=== PATIENT | male | born 1970 | race Two or more races ===

== ENCOUNTER 2018-03-30 22:50 | Emergency (ER) | payer MEDICAID ==
[~2018-03-30] VITALS: Ht 175.3 cm; Wt 80.0 kg
[2018-03-30 23:03] VITALS: BP 126/92
== END 2018-03-31 02:11 | disposition left against medical advice (07) ==
LOC: ER 22:50
DX: R53.1 Weakness (principal); R51 Headache; Z53.21 Procedure and treatment not carried out due to patient leaving prior to being seen by health care provider

== ENCOUNTER 2018-08-18 18:06 | Emergency (ER) | payer MEDICAID ==
[~2018-08-18] VITALS: Ht 172.7 cm; Wt 88.0 kg
[2018-08-18 19:05] LABS: BASOPHILS # (AUTO) 0.1 X10'3 (0-0.2); BASOPHILS % (AUTO) 0.9 % (0-1); EOSINOPHILS # (AUTO) 0.9 X10'3 (0-0.9); EOSINOPHILS % (AUTO) 9.4 % (0-6); HEMATOCRIT 41.7 % (42.0-52.0); HEMOGLOBIN 14.1 g/dl (14.0-17.9); LYMPHOCYTES # (AUTO) 2.9 X10'3 (1.1-4.8); LYMPHOCYTES % (AUTO) 29.5 % (21-51); MEAN CORPUSCULAR HEMOGLOBIN 31.4 PG (27.0-31.0); MEAN CORPUSCULAR HGB CONC 33.7 g/dL (33.0-36.5); MEAN CORPUSCULAR VOLUME 93.2 FL (78-98); MEAN PLATELET VOLUME 7.7 FL (7.4-10.4); MONOCYTES # (AUTO) 0.8 X10'3 (0-0.9); MONOCYTES % (AUTO) 8.7 % (2-12); NEUTROPHILS # (AUTO) 5.1 X10'3 (1.8-7.7); NEUTROPHILS % (AUTO) 51.5 % (42-75); PLATELET COUNT 265 X10'3 (140-440); RED BLOOD COUNT 4.47 X10'6 (4.70-6.10); RED CELL DISTRIBUTION WIDTH 13.7 % (11.5-14.5); WHITE BLOOD COUNT 9.8 X10'3 (4.5-11.0)
[2018-08-18 19:12] LABS: ALANINE AMINOTRANSFERASE 44 U/L (12-78); ALBUMIN 3.8 G/DL (3.4-5.0); ALBUMIN/GLOBULIN RATIO 1.4 (1.1-1.5); ALKALINE PHOSPHATASE 98 IU/L (46-116); ANION GAP 13 (8-16); ASPARTATE AMINO TRANSFERASE 12 U/L (10-37); BILIRUBIN,TOTAL 0.2 MG/DL (0.1-1.0); BLOOD UREA NITROGEN 16 MG/DL (7-18); CALCIUM 8.7 MG/DL (8.5-10.1); CHLORIDE 110 MMOL/L (99-107); CREATININE 1.14 MG/DL (0.60-1.10); GLUCOSE 113 MG/DL (70-104); POTASSIUM 3.6 MMOL/L (3.5-5.1); SODIUM 143 MMOL/L (135-145); TOTAL CARBON DIOXIDE 20.2 MMOL/L (24-32); TOTAL PROTEIN 6.5 G/DL (6.4-8.2); eGFR 68 ML/MIN
[2018-08-18] MEDS ORDERED: morphine 4 MG/ML inj SYRINge IV ONE (19:45)
[2018-08-18] MEDS ORDERED: normal saline 1000ML IV soln IVB ONE (19:45)
[2018-08-18 19:56] LABS: CLARITY,URINE SLIGHTLY CLOUDY (Clear); COLOR,URINE YELLOW (Yellow); GLUCOSE, URINE NEGATIVE (Neg); KETONES,URINE NEGATIVE (Neg); LEUKOCYTE ESTERASE ,URINE NEGATIVE (Neg); NITRITES, URINE NEGATIVE (Neg); OCCULT BLOOD,URINE TRACE-INTACT (Neg); PROTEIN,URINE NEGATIVE (Neg); UROBILINOGEN,URINE 0.2 E.U/dL (0.2-1.0)
[2018-08-18 20:06] LABS: UA COLLECTION TYPE CLN CATCH MIDSTREAM
[2018-08-18 20:11] LABS: AMORPHOUS PHOSPHATES 2+; BACTERIA,URINE NONE SEEN /HPF (Neg); SQUAMOUS EPITHELIAL CELL,UR FEW /LPF (FEW); WBC,URINE 0-4 /HPF (0-4)
[2018-08-18 22:13] LABS: LIPASE 178 U/L (73-393)
[2018-08-18] MEDS ORDERED: FLO0.4C PO (22:19)
[2018-08-18] MEDS ORDERED: LORA-983 PO (22:19)
[2018-08-18] MEDS ORDERED: ONDA4TAB6 PO (22:19)
[2018-08-18] MEDS ORDERED: HYDR-4383 PO (22:19)
[2018-08-18 22:40] VITALS: BP 130/89
== END 2018-08-18 22:42 | disposition home or self-care (01) ==
LOC: ER 18:07
DX: R10.11 Right upper quadrant pain (principal); R10.31 Right lower quadrant pain; R11.2 Nausea with vomiting, unspecified; E78.00 Pure hypercholesterolemia, unspecified; I10 Essential (primary) hypertension; F12.90 Cannabis use, unspecified, uncomplicated; Z90.49 Acquired absence of other specified parts of digestive tract; Z98.890 Other specified postprocedural states; Z88.7 Allergy status to serum and vaccine; Z79.899 Other long term (current) drug therapy
CPT/HCPCS: 36415; 71101; 76700; 80053; 81001; 83690; 85025; 96374; 99284; J2270; J7030

== ENCOUNTER 2019-02-01 14:19 | Inpatient (IN) | payer MEDICAID ==
[~2019-02-01] VITALS: Ht 175.3 cm; Wt 81.0 kg
[~2019-02-01 14:19] MED LIST: HYDR-4383 PO; LORA-983 PO; ONDA4TAB6 PO
[2019-02-01] MEDS ORDERED: normal saline 1000ML IV soln IVB ONE (14:25)
--- NOTE | 2019-02-01 14:48 | NUR ---
PT SITTING UP IN BED, NOT FOLLOWING COMMANDS, PULLING AT LINES. ATTEMPTED TO CALM AND ORIENT PT, PT STILL NOT FOLLOWING COMMANDS. NOTIFIED MD, RECIEVED ORDER FOR NON-HAVIORAL SOFT RESTRAINTS.
[2019-02-01 14:55] LABS: BASOPHILS # (AUTO) 0.1 X10'3 (0-0.2); BASOPHILS % (AUTO) 0.9 % (0-1); EOSINOPHILS # (AUTO) 0.6 X10'3 (0-0.9); EOSINOPHILS % (AUTO) 6.5 % (0-6); HEMATOCRIT 41.1 % (42.0-52.0); HEMOGLOBIN 14.1 g/dl (14.0-17.9); LYMPHOCYTES # (AUTO) 2.7 X10'3 (1.1-4.8); LYMPHOCYTES % (AUTO) 28.7 % (21-51); MEAN CORPUSCULAR HEMOGLOBIN 32.1 PG (27.0-31.0); MEAN CORPUSCULAR HGB CONC 34.3 g/dL (33.0-36.5); MEAN CORPUSCULAR VOLUME 93.5 FL (78-98); MEAN PLATELET VOLUME 7.7 FL (7.4-10.4); MONOCYTES # (AUTO) 0.5 X10'3 (0-0.9); MONOCYTES % (AUTO) 5.8 % (2-12); NEUTROPHILS # (AUTO) 5.5 X10'3 (1.8-7.7); NEUTROPHILS % (AUTO) 58.1 % (42-75); PLATELET COUNT 275 X10'3 (140-440); RED BLOOD COUNT 4.39 X10'6 (4.70-6.10); RED CELL DISTRIBUTION WIDTH 14.1 % (11.5-14.5); WHITE BLOOD COUNT 9.5 X10'3 (4.5-11.0)
[2019-02-01] MEDS ORDERED: RISP1TAB13 PO (15:00)
[2019-02-01 15:07] LABS: PARTIAL THROMBOPLASTIN TIME 27 SECONDS (22-32)
[2019-02-01 15:09] LABS: ALANINE AMINOTRANSFERASE 33 U/L (12-78); ALBUMIN 3.3 G/DL (3.4-5.0); ALBUMIN/GLOBULIN RATIO 1.1 (1.1-1.5); ALKALINE PHOSPHATASE 102 IU/L (46-116); ANION GAP 6 (8-16); ASPARTATE AMINO TRANSFERASE 21 U/L (10-37); BILIRUBIN,TOTAL 0.2 MG/DL (0.1-1.0); BLOOD UREA NITROGEN 12 MG/DL (7-18); BUN/CREATININE RATIO 11.3 (5.4-32.0); CALCIUM 8.2 MG/DL (8.5-10.1); CHLORIDE 111 MMOL/L (99-107); CREATININE 1.06 MG/DL (0.60-1.10); GLUCOSE 123 MG/DL (70-104); SODIUM 141 MMOL/L (135-145); TOTAL PROTEIN 6.3 G/DL (6.4-8.2); eGFR 74 ML/MIN
[2019-02-01 15:10] LABS: POTASSIUM 4.1 MMOL/L (3.5-5.1)
[2019-02-01 15:13] LABS: ACETAMINOPHEN < 2.0 UG/ML (10-30); ETHANOL < 0.010 GM/DL (0.0-0.010); TROPONIN I < 0.04 NG/ML (0.0-0.05)
[2019-02-01] MEDS ORDERED: acetaminophen 325mg tablet PO PRN (16:10)
[2019-02-01] MEDS ORDERED: mag hydrox/Alum hydrox/simeth 30ml oral suspension PO PRN (16:10)
[2019-02-01] MEDS ORDERED: ondansetron/PF 4mg/2ml inj IV PRN (16:10)
[2019-02-01] MEDS ORDERED: magnesium hydroxide 30ml (MOM) UD suspension PO PRN (16:10)
[2019-02-01] MEDS ORDERED: LORazepam 2 mg/ml vial IV ONE ×4 (16:30→17:45)
--- NOTE | 2019-02-01 16:30 | NUR ---
I have received report from the emergency department and had the opportunity to ask questions and assume patient care. Awaiting patient's arrival to the unit.
[2019-02-01 16:35] LABS: CLARITY,URINE CLEAR (Clear); COLOR,URINE STRAW (Yellow); GLUCOSE, URINE NEGATIVE (Neg); KETONES,URINE NEGATIVE (Neg); LEUKOCYTE ESTERASE ,URINE NEGATIVE (Neg); NITRITES, URINE NEGATIVE (Neg); OCCULT BLOOD,URINE TRACE-INTACT (Neg); PH,URINE 6.5 (4.8-8.0); PROTEIN,URINE NEGATIVE (Neg); UROBILINOGEN,URINE 0.2 E.U/dL (0.2-1.0)
[2019-02-01 16:38] LABS: UA COLLECTION TYPE URINAL
[2019-02-01 16:45] LABS: BACTERIA,URINE NONE SEEN /HPF (Neg); MUCUS STRANDS NONE SEEN /LPF (Neg); RBC,URINE 0-2 /HPF (0-2); SQUAMOUS EPITHELIAL CELL,UR NONE SEEN /LPF (FEW); WBC,URINE 0-4 /HPF (0-4)
[2019-02-01 16:49] LABS: URINE AMPHETAMINE SCREEN NEGATIVE (Neg); URINE BARBITUATE SCREEN NEGATIVE (Neg); URINE BENZODIAZEPINES SCREEN NEGATIVE (Neg); URINE CANNABINOID SCREEN POSITIVE (Neg); URINE COCAINE SCREEN NEGATIVE (Neg); URINE METHADONE SCREEN NEGATIVE (Neg); URINE OPIATE SCREEN NEGATIVE (Neg); URINE PHENCYCLIDINE SCREEN NEGATIVE (Neg)
[2019-02-01] MEDS ORDERED: haloperidol lactate 5mg/ml inj IM ONE (17:00)
[2019-02-01] MEDS ORDERED: LORazepam 2 mg/ml vial ONE (17:23)
--- NOTE | 2019-02-01 17:28 | NUR ---
PAGER ID: [phone] MESSAGE: [phone]: FreddieJamshid. Pt has been given Haldol and Ativan. Security here holding patient down. PATY Hathaway. [phone] Addendum: 02/01/19 at 1732 by Caryn Vo RN Dr. Mccormick has verbally ordered via telephone 2mg IV Ativan ONCE. Dr. Mccormick will be up to see the patient.
--- NOTE | 2019-02-01 17:43 | NUR ---
Dr. Mccormick at the bedside and has ordered 2mg Ativan IV Once. Called pharmacy to have medication cleared.
[2019-02-01] MEDS ORDERED: diphenhydrAMINE 50 mg/ml inj IM ONE (17:50)
[2019-02-01] MEDS ORDERED: pantoprazole 40 MG vial IV ONE (17:55)
[2019-02-01] MEDS ORDERED: diphenhydrAMINE 50 mg/ml inj IV ONE (18:00)
--- NOTE | 2019-02-01 18:23 | NUR ---
Page sent to Dr. Mccormick: PAGER ID: [phone] MESSAGE: [phone] Frazier: What frequency should I put for the PRN Ativan? Thanks, Mag
--- NOTE | 2019-02-01 18:30 | NUR ---
Patient in room PCU 3022. I have received report from Mag NEWMAN and had the opportunity to ask questions and assume patient care. pt is in restraints and is sitting self up frequently and highly agitated in bed, this is after pt has been medicated per MD orders. doctor has been notified about current situation.
--- NOTE | 2019-02-01 18:43 | NUR ---
PAGER ID: [phone] MESSAGE: [phone]: second shift supervisor is asking for a PRN or one time Haldol order please? Thanks, Mag [phone]
[2019-02-01] MEDS ORDERED: diazepam inj 5 MG/ML inj. IV STA (19:55)
[2019-02-01] MEDS ORDERED: diazepam inj 5 MG/ML inj. IV PRN (19:55)
--- NOTE | 2019-02-01 19:55 | NUR ---
. has arrived on unit to assess pt per MD. Escudero we will increase medication regimen and md is aware of current restraints in place.
[2019-02-01] MEDS: LORazepam 2 mg/ml vial IV PRN ×2 (20:24→23:00)
[2019-02-01] MEDS: haloperidol lactate 5mg/ml inj IM PRN ×2 (20:24→23:00)
[2019-02-01] MEDS: heparin, porcine 5000 units/ml vial SQ SCH (20:25)
[2019-02-01] MEDS: diphenhydrAMINE 50 mg/ml inj IV PRN (20:25)
--- NOTE | 2019-02-01 20:55 | NUR ---
NOTIFIED PAGER ID: [phone] MESSAGE: [phone], Jamshid Frazier- medications did not do anything, pt is now banging head into side rails (pads up now). we are worried that he will break bed and hurt self and/or others. please advise
[2019-02-01] MEDS ORDERED: ziprasidone IM 20mg inj **IM only IM STA (21:10)
[2019-02-01 22:00] VITALS: BP 157/78
--- NOTE | 2019-02-01 23:30 | NUR ---
medications have seemed to have some effect on pt agitation and LLE restraint has been removed. sitter still in room and has stated that they will keep out of striking distance of free leg, will continue to re-assess.
[2019-02-02] VITALS (14 sets, daily range): BP systolic 124–164; BP diastolic 77–100
--- NOTE | 2019-02-02 00:06 | NUR ---
edema in right hand is due to pt pulling so aggressively for a long period of time against restraint. restraints are kept loose enough to fit at least 1 finger in and good capillary refill is present in all fingers. these checks have been and will continue to be done on 30 minute intervals to ensure proper blood flow to this extremity. Addendum: 02/02/19 at 0017 by Luca Schaffer RN Amended: Links added.
--- NOTE | 2019-02-02 00:24 | NUR ---
hand off report from day shift RN: pt extremely combative even with family, pt broke soft restraints, then soft restraints were doubled on each limb and pt still broke through. then most of the unit had to go to assist restraining pt until security could get leather/hard restraints. This was with many meds on board to help reduce agitation. is aware of all this. during my shift, security personnel told me that this pt was "un-humanly strong" and was able to lift him off the ground with one limb. pt is still very actively hostile and displaying extreme strength. Addendum: 02/02/19 at 0032 by Luca Schaffer RN Amended: Links added.
[2019-02-02] MEDS: haloperidol lactate 5mg/ml inj IM PRN ×5 (01:05→10:50)
[2019-02-02] MEDS: LORazepam 2 mg/ml vial IV PRN ×7 (01:06→22:06)
[2019-02-02] MEDS: diphenhydrAMINE 50 mg/ml inj IV PRN (02:33)
[2019-02-02] MEDS: diazepam inj 5 MG/ML inj. IV PRN ×4 (03:12→11:11)
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
--- NOTE | 2019-02-02 06:22 | NUR ---
Patient in room PCU 3022. I have received report from Yassine RN and had the opportunity to ask questions and assume patient care.
--- NOTE | 2019-02-02 06:30 | NUR ---
Problems reprioritized. Patient report given, questions answered & plan of care reviewed with Maya Burton RN.
[2019-02-02] MEDS: pantoprazole 40 MG vial IV SCH (07:24)
[2019-02-02] MEDS: heparin, porcine 5000 units/ml vial SQ SCH ×3 (07:24→21:16)
[2019-02-02 07:41] LABS: BASOPHILS # (AUTO) 0.1 X10'3 (0-0.2); BASOPHILS % (AUTO) 0.4 % (0-1); EOSINOPHILS # (AUTO) 0.4 X10'3 (0-0.9); EOSINOPHILS % (AUTO) 2.5 % (0-6); HEMATOCRIT 43.1 % (42.0-52.0); HEMOGLOBIN 14.7 g/dl (14.0-17.9); LYMPHOCYTES # (AUTO) 2.3 X10'3 (1.1-4.8); LYMPHOCYTES % (AUTO) 14.6 % (21-51); MEAN CORPUSCULAR HEMOGLOBIN 31.8 PG (27.0-31.0); MEAN CORPUSCULAR VOLUME 93.4 FL (78-98); MEAN PLATELET VOLUME 7.9 FL (7.4-10.4); MONOCYTES # (AUTO) 1.3 X10'3 (0-0.9); NEUTROPHILS % (AUTO) 74.5 % (42-75); PLATELET COUNT 274 X10'3 (140-440); RED BLOOD COUNT 4.61 X10'6 (4.70-6.10); RED CELL DISTRIBUTION WIDTH 13.9 % (11.5-14.5)
[2019-02-02 07:59] LABS: ALANINE AMINOTRANSFERASE 59 U/L (12-78); ALBUMIN 3.6 G/DL (3.4-5.0); ALBUMIN/GLOBULIN RATIO 1.1 (1.1-1.5); ALKALINE PHOSPHATASE 89 IU/L (46-116); ANION GAP 11 (8-16); ASPARTATE AMINO TRANSFERASE 111 U/L (10-37); BILIRUBIN,TOTAL 0.5 MG/DL (0.1-1.0); BLOOD UREA NITROGEN 9 MG/DL (7-18); BUN/CREATININE RATIO 9.8 (5.4-32.0); CALCIUM 8.5 MG/DL (8.5-10.1); CHLORIDE 109 MMOL/L (99-107); CREATININE 0.92 MG/DL (0.60-1.10); GLUCOSE 90 MG/DL (70-104); POTASSIUM 3.6 MMOL/L (3.5-5.1); SODIUM 142 MMOL/L (135-145); TOTAL CARBON DIOXIDE 22.5 MMOL/L (24-32); TOTAL PROTEIN 6.9 G/DL (6.4-8.2); eGFR 87 ML/MIN
--- NOTE | 2019-02-02 08:05 | NUR ---
Pt out of 4 point restraints, currently in 3 point restraints. Will monitor closely
[2019-02-02] MEDS: normal saline 1000ml 1,000 ML IV SCH (09:52)
[2019-02-02] MEDS ORDERED: normal saline 1000ml 1,000 ML IV ONE (10:05)
--- NOTE | 2019-02-02 10:28 | NUR ---
Called report to Noemy RN in ICU. All question answered, pt stable at this time
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
--- NOTE | 2019-02-02 10:42 | NUR ---
Patient admitted to room 2038, with Noemy RN taking over care of patient.
[2019-02-02] MEDS: ziprasidone IM 20mg inj **IM only IM PRN ×4 (12:32→21:34)
--- NOTE | 2019-02-02 13:11 | NUR ---
Patient's Annie at bedside, updated on his condition. She was able to help him urinate in urinal. Would not do for staff assisting him. Gave some background on the occurrences prior to his admission. VSS but pt very agitated, kicking and yelling at RN and sitter. VSS stable so pt given Geodon IM per orders. He is minimally more sedated at this time, not kicking around or pulling at restraints. Still awake and trying to communicate. Sats 94% on room air.
[2019-02-02] MEDS ORDERED: GABA-532 PO (13:34)
[2019-02-02] MEDS ORDERED: ASPI-1265 PO (13:34)
[2019-02-02] MEDS ORDERED: TOP100T PO (13:34)
[2019-02-02] MEDS ORDERED: LORA-269 PO (13:34)
[2019-02-02] MEDS ORDERED: OMEP20TA5 PO (13:34)
[2019-02-02] MEDS ORDERED: CYCL-1 PO (13:34)
[2019-02-02] MEDS ORDERED: IBUP-1985 PO (13:34)
[2019-02-02] MEDS ORDERED: PROC10TA10 PO (13:34)
[2019-02-02] MEDS ORDERED: ASPI81TA52 PO (13:42)
--- NOTE | 2019-02-02 18:30 | NUR ---
Patient in room ICU 2038. I have received report from Noemy Durham RN and had the opportunity to ask questions and assume patient care.
[2019-02-02] MEDS ORDERED: LORazepam 2 mg/ml vial IV ONE ×2 (22:45)
[2019-02-03] VITALS (24 sets, daily range): BP systolic 121–179; BP diastolic 76–116
[2019-02-03] MEDS: ziprasidone IM 20mg inj **IM only IM PRN ×3 (00:29→13:58)
[2019-02-03] MEDS: LORazepam 2 mg/ml vial IV PRN ×19 (00:29→23:08)
[2019-02-03] MEDS ORDERED: OLANZapine **IM** 10 mg inj. IM ONE (01:25)
[2019-02-03 05:07] LABS: BASOPHILS # (AUTO) 0.1 X10'3 (0-0.2); BASOPHILS % (AUTO) 0.5 % (0-1); EOSINOPHILS # (AUTO) 0.4 X10'3 (0-0.9); EOSINOPHILS % (AUTO) 3.2 % (0-6); HEMATOCRIT 46.6 % (42.0-52.0); HEMOGLOBIN 15.8 g/dl (14.0-17.9); LYMPHOCYTES # (AUTO) 2.3 X10'3 (1.1-4.8); LYMPHOCYTES % (AUTO) 16.7 % (21-51); MEAN CORPUSCULAR HEMOGLOBIN 31.7 PG (27.0-31.0); MEAN CORPUSCULAR VOLUME 93.4 FL (78-98); MEAN PLATELET VOLUME 7.7 FL (7.4-10.4); MONOCYTES # (AUTO) 1.1 X10'3 (0-0.9); NEUTROPHILS # (AUTO) 9.8 X10'3 (1.8-7.7); NEUTROPHILS % (AUTO) 71.6 % (42-75); PLATELET COUNT 286 X10'3 (140-440); RED BLOOD COUNT 4.99 X10'6 (4.70-6.10); WHITE BLOOD COUNT 13.7 X10'3 (4.5-11.0)
[2019-02-03 05:52] LABS: ALANINE AMINOTRANSFERASE 65 U/L (12-78); ALBUMIN 3.7 G/DL (3.4-5.0); ALKALINE PHOSPHATASE 94 IU/L (46-116); ANION GAP 10 (8-16); ASPARTATE AMINO TRANSFERASE 118 U/L (10-37); BILIRUBIN,TOTAL 0.5 MG/DL (0.1-1.0); BLOOD UREA NITROGEN 10 MG/DL (7-18); BUN/CREATININE RATIO 10.8 (5.4-32.0); CALCIUM 8.7 MG/DL (8.5-10.1); CHLORIDE 108 MMOL/L (99-107); CREATININE 0.93 MG/DL (0.60-1.10); GLUCOSE 92 MG/DL (70-104); POTASSIUM 3.7 MMOL/L (3.5-5.1); SODIUM 141 MMOL/L (135-145); TOTAL CARBON DIOXIDE 22.7 MMOL/L (24-32); TOTAL PROTEIN 7.5 G/DL (6.4-8.2); eGFR 86 ML/MIN
[2019-02-03 05:53] LABS: CREATINE KINASE 3301 U/L (39-308)
--- NOTE | 2019-02-03 06:38 | NUR ---
Problems reprioritized. Patient report given, questions answered & plan of care reviewed with Ilene Liu RN.
--- NOTE | 2019-02-03 06:49 | NUR ---
Patient in room ICU 2038. I have received report from PATY Metzger and had the opportunity to ask questions and assume patient care. Pt is sleeping, thrashing about in bed. Restraints checked, circulation throughout extremities good. Will continue to monitor.
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
[2019-02-03] MEDS: pantoprazole 40 MG vial IV SCH (08:58)
[2019-02-03] MEDS: heparin, porcine 5000 units/ml vial SQ SCH ×2 (08:58→20:35)
--- NOTE | 2019-02-03 10:02 | NUR ---
Called poison control. She stated that there are many benzos that would not show up on some drug tests, and that gabapentin would not show up on a drug test. She was informed that there are some concerns about the pt having taken bath salts; she listed off HTN, tachycardia, aggression, and delirium as the side effects for bath salts. The poison control employee stated that regardless of whether or not the OD was from bath salts (which is purely speculation based off his behavior) or the 's Rx, benzos are the main stay for treatment, just keeping the pt calm and safe.
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
[2019-02-03] MEDS: normal saline 1000ml 1,000 ML IV SCH ×3 (11:32→20:49)
--- NOTE | 2019-02-03 12:02 | NUR ---
Pt BP high: 168/91 (MAP 120). Dr Catalan aware.
--- NOTE | 2019-02-03 13:00 | NUR ---
Pt states he does not want his brother specifically, or anybody besides his to have any information.
--- NOTE | 2019-02-03 14:00 | NUR ---
Apart from trying to hit/knee/head butt, the pt is spitting at the staff. Spit mask placed. Pt is extremely combative and aggressive.
--- NOTE | 2019-02-03 14:21 | NUR ---
Pt has an elongated QT interval, Dr Catalan aware.
[2019-02-03] MEDS ORDERED: dexmedetomidine inj. 400 MCG in normal saline 100ml IV soln 100 ML IV PRN (15:10)
[2019-02-03] MEDS ORDERED: LORazepam 2 mg/ml vial IV ONE (15:10)
--- NOTE | 2019-02-03 16:30 | NUR ---
Orders received from Dr. Catalan to give 4 mg of ativan q 5 min till pt sedated Pt cont sitting up in bed fighting restraints yelling at nurses and trying to kick and hit them VSS sat 98 % room air
[2019-02-03] MEDS: dexmedetomidine inj. 400 MCG in normal saline 100ml IV soln 100 ML IV PRN ×3 (16:45→23:13)
--- NOTE | 2019-02-03 18:30 | NUR ---
Patient in room ICU 2038. I have received report from Ilene Liu and had the opportunity to ask questions and assume patient care.
--- NOTE | 2019-02-03 18:39 | NUR ---
Problems reprioritized. Pt stable. Patient report given, questions answered & plan of care reviewed with PATY Metzger.
--- NOTE | 2019-02-03 22:57 | NUR ---
assessment was done at 2000 timing stamp was not corrected Addendum: 02/03/19 at 8387 by Luca Schaffer RN Amended: Links added.
[2019-02-04] VITALS (23 sets, daily range): BP systolic 99–145; BP diastolic 58–100
[2019-02-04] MEDS: LORazepam 2 mg/ml vial IV PRN ×7 (00:19→09:00)
[2019-02-04] MEDS: ziprasidone IM 20mg inj **IM only IM PRN (01:51)
[2019-02-04] MEDS: dexmedetomidine inj. 400 MCG in normal saline 100ml IV soln 100 ML IV PRN ×3 (04:00→16:36)
[2019-02-04 04:52] LABS: BASOPHILS # (AUTO) 0.1 X10'3 (0-0.2); BASOPHILS % (AUTO) 0.5 % (0-1); EOSINOPHILS # (AUTO) 0.4 X10'3 (0-0.9); EOSINOPHILS % (AUTO) 3.5 % (0-6); HEMATOCRIT 42.7 % (42.0-52.0); HEMOGLOBIN 14.6 g/dl (14.0-17.9); LYMPHOCYTES # (AUTO) 1.6 X10'3 (1.1-4.8); LYMPHOCYTES % (AUTO) 13.9 % (21-51); MEAN CORPUSCULAR HEMOGLOBIN 31.9 PG (27.0-31.0); MEAN CORPUSCULAR HGB CONC 34.1 g/dL (33.0-36.5); MEAN CORPUSCULAR VOLUME 93.5 FL (78-98); MEAN PLATELET VOLUME 7.5 FL (7.4-10.4); MONOCYTES % (AUTO) 8.3 % (2-12); NEUTROPHILS # (AUTO) 8.7 X10'3 (1.8-7.7); NEUTROPHILS % (AUTO) 73.8 % (42-75); PLATELET COUNT 262 X10'3 (140-440); RED BLOOD COUNT 4.57 X10'6 (4.70-6.10); RED CELL DISTRIBUTION WIDTH 13.6 % (11.5-14.5); WHITE BLOOD COUNT 11.8 X10'3 (4.5-11.0)
[2019-02-04 05:02] LABS: ALBUMIN 3.3 G/DL (3.4-5.0); ANION GAP 7 (8-16); BILIRUBIN,TOTAL 0.6 MG/DL (0.1-1.0); BLOOD UREA NITROGEN 17 MG/DL (7-18); BUN/CREATININE RATIO 18.9 (5.4-32.0); CALCIUM 8.2 MG/DL (8.5-10.1); CHLORIDE 111 MMOL/L (99-107); GLUCOSE 112 MG/DL (70-104); POTASSIUM 3.9 MMOL/L (3.5-5.1); SODIUM 144 MMOL/L (135-145); TOTAL CARBON DIOXIDE 25.8 MMOL/L (24-32); TOTAL PROTEIN 6.7 G/DL (6.4-8.2); eGFR 90 ML/MIN
[2019-02-04 05:03] LABS: ALANINE AMINOTRANSFERASE 60 U/L (12-78); ALKALINE PHOSPHATASE 86 IU/L (46-116); ASPARTATE AMINO TRANSFERASE 80 U/L (10-37)
[2019-02-04] MEDS: normal saline 1000ml 1,000 ML IV SCH ×2 (06:53→16:39)
[2019-02-04] MEDS: pantoprazole 40 MG vial IV SCH (09:05)
[2019-02-04] MEDS: heparin, porcine 5000 units/ml vial SQ SCH ×2 (09:05→20:45)
[2019-02-04] MEDS ORDERED: LORazepam 1 MG tablet PO PRN (11:00)
[2019-02-04] MEDS ORDERED: proCHLORperazine 10mg tablet PO PRN (11:00)
[2019-02-04] MEDS: CefTRIAXone/D5W-Rocephin 1gm 50 ML IV SCH (11:58)
--- NOTE | 2019-02-04 12:21 | NUR ---
Pt refusing to eat w/ ALOC s/p OD. Not safe enough to place NG And refusing meals also breaking initial restraints per MD. Will monitor for nutrition support needs if prolonged inability to receive PO. Addendum: 02/04/19 at [address] Amended: Links added.
[2019-02-04] MEDS: gabapentin 300mg capsule PO SCH ×2 (13:00→20:44)
[2019-02-04 17:16] LABS: CREATINE KINASE 1317 U/L (39-308)
--- NOTE | 2019-02-04 18:45 | NUR ---
Patient in room ICU 2038. I have received report from Estiven Rivas, and had the opportunity to ask questions and assume patient care.
[2019-02-04] MEDS: lactobacillus rhamnosus 10,000 MMU CELLS/CAPSULE PO SCH (20:41)
[2019-02-04] MEDS: risperiDONE 0.5mg tablet PO SCH (20:48)
[2019-02-04] MEDS: topiramate 100mg tablet PO SCH (20:48)
[2019-02-04] MEDS ORDERED: pantoprazole 40mg Tablet.DR PO SCH (21:00)
[2019-02-05] VITALS (15 sets, daily range): BP systolic 108–139; BP diastolic 67–94
[2019-02-05] MEDS: dexmedetomidine inj. 400 MCG in normal saline 100ml IV soln 100 ML IV PRN ×3 (00:50→08:39)
[2019-02-05] MEDS: normal saline 1000ml 1,000 ML IV SCH ×2 (04:01→15:20)
[2019-02-05 04:42] LABS: BASOPHILS # (AUTO) 0.1 X10'3 (0-0.2); BASOPHILS % (AUTO) 0.9 % (0-1); EOSINOPHILS # (AUTO) 0.3 X10'3 (0-0.9); EOSINOPHILS % (AUTO) 2.7 % (0-6); HEMATOCRIT 42.2 % (42.0-52.0); HEMOGLOBIN 14.3 g/dl (14.0-17.9); LYMPHOCYTES # (AUTO) 2.7 X10'3 (1.1-4.8); MEAN CORPUSCULAR HEMOGLOBIN 31.6 PG (27.0-31.0); MEAN CORPUSCULAR VOLUME 92.9 FL (78-98); MEAN PLATELET VOLUME 7.7 FL (7.4-10.4); MONOCYTES # (AUTO) 1.3 X10'3 (0-0.9); MONOCYTES % (AUTO) 10.3 % (2-12); NEUTROPHILS # (AUTO) 7.8 X10'3 (1.8-7.7); NEUTROPHILS % (AUTO) 64.1 % (42-75); PLATELET COUNT 256 X10'3 (140-440); RED BLOOD COUNT 4.54 X10'6 (4.70-6.10); RED CELL DISTRIBUTION WIDTH 13.8 % (11.5-14.5); WHITE BLOOD COUNT 12.2 X10'3 (4.5-11.0)
[2019-02-05 04:48] LABS: ALANINE AMINOTRANSFERASE 61 U/L (12-78); ALBUMIN/GLOBULIN RATIO 0.8 (1.1-1.5); ALKALINE PHOSPHATASE 105 IU/L (46-116); ANION GAP 8 (8-16); ASPARTATE AMINO TRANSFERASE 51 U/L (10-37); BILIRUBIN,TOTAL 0.7 MG/DL (0.1-1.0); BLOOD UREA NITROGEN 19 MG/DL (7-18); BUN/CREATININE RATIO 24.1 (5.4-32.0); CALCIUM 8.1 MG/DL (8.5-10.1); CHLORIDE 110 MMOL/L (99-107); CREATININE 0.79 MG/DL (0.60-1.10); GLUCOSE 91 MG/DL (70-104); POTASSIUM 3.7 MMOL/L (3.5-5.1); SODIUM 142 MMOL/L (135-145); TOTAL CARBON DIOXIDE 23.7 MMOL/L (24-32); TOTAL PROTEIN 6.6 G/DL (6.4-8.2); eGFR > 90 ML/MIN
--- NOTE | 2019-02-05 06:37 | NUR ---
Problems reprioritized. Patient report given, questions answered & plan of care reviewed with Rona NEWMAN.
[2019-02-05] MEDS ORDERED: aspirin 81mg tablet.DR PO SCH (08:00)
[2019-02-05] MEDS: risperiDONE 0.5mg tablet PO SCH (08:41)
[2019-02-05] MEDS: topiramate 100mg tablet PO SCH (08:41)
[2019-02-05] MEDS: gabapentin 300mg capsule PO SCH ×2 (08:41→13:49)
[2019-02-05] MEDS: heparin, porcine 5000 units/ml vial SQ SCH (08:41)
[2019-02-05] MEDS: lactobacillus rhamnosus 10,000 MMU CELLS/CAPSULE PO SCH (08:41)
[2019-02-05] MEDS: CefTRIAXone/D5W-Rocephin 1gm 50 ML IV SCH (08:42)
--- NOTE | 2019-02-05 11:32 | NUR ---
Initial: Pt PO 0% mechanical soft/grind all meals ALOC improving and pt currently requesting to leave AMA per RN. Caution tray given OD. CK Improving. 1799 hold per MD. No BM yet this admit but also no PO w/ ALOC. Not appropriate for NG r/t ALOC at this time per MD. Will continue to monitor. Rec: 1. continue mechanical soft/grind; caution tray 2. monitor for additional protein needs as PO improves 3. wt per rx Addendum: 02/05/19 at [address] Amended: Links added.
--- NOTE | 2019-02-05 13:30 | NUR ---
Received report from Rona, patient stable and vitals good
--- NOTE | 2019-02-05 13:40 | NUR ---
Problems reprioritized. Patient report given, questions answered & plan of care reviewed with PATY Camara. Patient transferred to PCU, telemetry applied prior to transfer, VSS, restraints removed and patient pleasant and cooperative at time of transfer. Sitter accompanied patient.
--- NOTE | 2019-02-05 18:24 | NUR ---
SECURITY CALLED TO ROOM . PT VERY COMBATIVE AND WANTING TO LEAVE AMA. I WAS REQUESTED BY SECURITY TO CALL POLICE PT IS A 1799. POLICE CALLED.
--- NOTE | 2019-02-05 18:30 | NUR ---
PT WALKED OUT FOLLOWED BY SECURITY. MET BY [employer] IN PARKING LOT. THE POLICE INTERVIEWED PT AND DECIDED HE WAS OK TO LEAVE. DR BRO INFORMED OF EVENTS.
--- NOTE | 2019-02-05 18:41 | NUR ---
At shift change a janet yates was called, went to room to assessed the patient, security guards standing at door way, they explained patient ripped IVs out and wanting to leave, Dr Madrid called and informed, ordered [address] patient in restraints,security unable to restrain patient, Charge Nurse call [employer] to inform them of patient's hold and was leaving and unable to restrain patient, security followed patient down to lobby where [employer] was waiting for patient
--- NOTE | 2019-02-05 18:57 | NUR ---
Called patient's to inform her of situation that patient has left the hospital
== END 2019-02-05 18:20 | disposition left against medical advice (07) | DRG 812 ==
LOC: ER 14:19 → ED HOLD 16:06 → EDBEDREQ 16:25 → PCU 3S 16:38 → ICU 2S 02-02 10:30 → PCU 3S 02-05 14:10
PROVIDERS: ADMIT Family Medicine; ATTEND Internal Medicine Critical Care Medicine
DX: T43.212A Poisoning by selective serotonin and norepinephrine reuptake inhibitors, intentional self-harm, initial encounter (principal); G92 Toxic encephalopathy; Z78.1 Physical restraint status; F23 Brief psychotic disorder; T39.312A Poisoning by propionic acid derivatives, intentional self-harm, initial encounter; T43.592A Poisoning by other antipsychotics and neuroleptics, intentional self-harm, initial encounter; I10 Essential (primary) hypertension; E78.00 Pure hypercholesterolemia, unspecified; Z53.29 Procedure and treatment not carried out because of patient's decision for other reasons; E78.5 Hyperlipidemia, unspecified; R00.0 Tachycardia, unspecified; F15.129 Other stimulant abuse with intoxication, unspecified; F12.90 Cannabis use, unspecified, uncomplicated; F32.9 Major depressive disorder, single episode, unspecified; R45.6 Violent behavior; Z90.49 Acquired absence of other specified parts of digestive tract; Z88.7 Allergy status to serum and vaccine; Z98.52 Vasectomy status; Y92.89 Other specified places as the place of occurrence of the external cause; Z79.899 Other long term (current) drug therapy; Z79.82 Long term (current) use of aspirin
CPT/HCPCS: 36415; 70450; 71045; 80053; 80305; 80320; 80329; 81001; 82550; 83605; 83874; 84484; 85025; 85610; 85730; 87040; 87081; 93005; 96360; 99285; C9113; G0378; J0696; J1200; J1630; J1644; J2060; J3360; J3486; J3490; J7030; Q0164

== ENCOUNTER 2019-08-13 10:53 | Emergency (ER) | payer MEDICAID ==
[~2019-08-13] VITALS: Ht 170.2 cm; Wt 90.0 kg
[~2019-08-13 10:53] MED LIST changes: +ASPI81TA52 PO; +GABA-532 PO; -HYDR-4383 PO; +LORA-269 PO; -LORA-983 PO; +OMEP20TA5 PO; -ONDA4TAB6 PO; +PROC10TA10 PO; +RISP1TAB13 PO; +TOP100T PO
[2019-08-13 11:00] VITALS: BP 145/92
[2019-08-13] MEDS ORDERED: HYDROcodone/acetaminophen 5mg/325mg tablet PO ONE (11:15)
== END 2019-08-13 12:05 | disposition home or self-care (01) ==
LOC: ER 10:53
DX: S00.83XA Contusion of other part of head, initial encounter (principal); E78.00 Pure hypercholesterolemia, unspecified; I10 Essential (primary) hypertension; F12.90 Cannabis use, unspecified, uncomplicated; Z90.49 Acquired absence of other specified parts of digestive tract; Z98.890 Other specified postprocedural states; Z72.89 Other problems related to lifestyle; Z88.7 Allergy status to serum and vaccine; Z79.82 Long term (current) use of aspirin; Z79.899 Other long term (current) drug therapy; W22.8XXA Striking against or struck by other objects, initial encounter; Y93.89 Activity, other specified; Y92.89 Other specified places as the place of occurrence of the external cause; Y99.8 Other external cause status
CPT/HCPCS: 70486; 99284

== ENCOUNTER 2019-10-12 19:06 | Emergency (ER) | payer MEDICAID ==
[~2019-10-12] VITALS: Ht 170.2 cm; Wt 86.4 kg
[2019-10-12 19:31] VITALS: BP 133/88
[2019-10-12] MEDS ORDERED: ketorolac tromethamine 15mg/ml inj. IM ONE (19:45)
== END 2019-10-12 19:59 | disposition home or self-care (01) ==
LOC: ER 19:07
DX: R51 Headache (principal); I10 Essential (primary) hypertension; E78.00 Pure hypercholesterolemia, unspecified; F12.90 Cannabis use, unspecified, uncomplicated; Z76.0 Encounter for issue of repeat prescription; Z90.49 Acquired absence of other specified parts of digestive tract; Z72.89 Other problems related to lifestyle; Z98.890 Other specified postprocedural states; Z79.899 Other long term (current) drug therapy; Z88.7 Allergy status to serum and vaccine
CPT/HCPCS: 96372; 99283; J1885

== ENCOUNTER 2020-04-12 11:29 | Emergency (ER) | payer MEDICAID ==
[~2020-04-12] VITALS: Ht 170.2 cm; Wt 89.9 kg
[2020-04-12] MEDS ORDERED: sucralfate 1 gm tablet PO ONE (11:50)
[2020-04-12] MEDS ORDERED: mag hydrox/Alum hydrox/simeth 30ml oral suspension PO ONE (11:50)
[2020-04-12] MEDS ORDERED: LIDOcaine Viscous 15ml cup MM ONE (11:50)
[2020-04-12 12:30] LABS: ALANINE AMINOTRANSFERASE 42 U/L (12-78); ALBUMIN 3.9 G/DL (3.4-5.0); ALBUMIN/GLOBULIN RATIO 1.3 (1.1-1.5); ALKALINE PHOSPHATASE 95 IU/L (46-116); ANION GAP 10 (8-16); ASPARTATE AMINO TRANSFERASE 22 U/L (10-37); BILIRUBIN,TOTAL 0.2 MG/DL (0.1-1.0); BLOOD UREA NITROGEN 14 MG/DL (7-18); BUN/CREATININE RATIO 14.3 (5.4-32.0); CALCIUM 8.5 MG/DL (8.5-10.1); CHLORIDE 110 MMOL/L (99-107); CREATININE 0.98 MG/DL (0.60-1.10); GLUCOSE 115 MG/DL (70-104); LIPASE 104 U/L (73-393); POTASSIUM 3.7 MMOL/L (3.5-5.1); SODIUM 143 MMOL/L (135-145); TOTAL CARBON DIOXIDE 22.8 MMOL/L (24-32); eGFR 81 ML/MIN
[2020-04-12 12:37] LABS: BASOPHILS # (AUTO) 0.1 X10'3 (0-0.2); BASOPHILS % (AUTO) 0.9 % (0-1); EOSINOPHILS # (AUTO) 0.8 X10'3 (0-0.9); EOSINOPHILS % (AUTO) 10.3 % (0-6); HEMATOCRIT 43.9 % (42.0-52.0); HEMOGLOBIN 14.8 g/dl (14.0-17.9); LYMPHOCYTES # (AUTO) 2.1 X10'3 (1.1-4.8); LYMPHOCYTES % (AUTO) 27.9 % (21-51); MEAN CORPUSCULAR HEMOGLOBIN 31.7 PG (27.0-31.0); MEAN CORPUSCULAR HGB CONC 33.7 g/dL (33.0-36.5); MEAN CORPUSCULAR VOLUME 94.3 FL (78-98); MEAN PLATELET VOLUME 8.1 FL (7.4-10.4); MONOCYTES # (AUTO) 0.5 X10'3 (0-0.9); MONOCYTES % (AUTO) 7.1 % (2-12); NEUTROPHILS # (AUTO) 4.1 X10'3 (1.8-7.7); NEUTROPHILS % (AUTO) 53.8 % (42-75); PLATELET COUNT 275 X10'3 (140-440); RED BLOOD COUNT 4.65 X10'6 (4.70-6.10); RED CELL DISTRIBUTION WIDTH 13.3 % (11.5-14.5); WHITE BLOOD COUNT 7.7 X10'3 (4.5-11.0)
[2020-04-12] MEDS ORDERED: PANT-47 PO (12:49)
[2020-04-12 15:16] VITALS: BP 147/77
== END 2020-04-12 15:29 | disposition home or self-care (01) ==
LOC: ER 11:29
DX: R10.13 Epigastric pain (principal); R10.11 Right upper quadrant pain; R06.02 Shortness of breath; R07.89 Other chest pain; E78.00 Pure hypercholesterolemia, unspecified; I10 Essential (primary) hypertension; F12.90 Cannabis use, unspecified, uncomplicated; Z90.89 Acquired absence of other organs; Z98.890 Other specified postprocedural states; Z72.89 Other problems related to lifestyle; Z88.8 Allergy status to other drugs, medicaments and biological substances; Z79.82 Long term (current) use of aspirin; Z79.899 Other long term (current) drug therapy
CPT/HCPCS: 36415; 71045; 80053; 83690; 84484; 85025; 93005; 99285

== ENCOUNTER 2020-05-21 19:32 | Emergency (ER) | payer MEDICAID ==
[~2020-05-21] VITALS: Ht 170.2 cm; Wt 89.2 kg
[~2020-05-21 19:32] MED LIST changes: +PANT-47 PO
[2020-05-21 19:44] VITALS: BP 141/79
[2020-05-21] MEDS ORDERED: ketorolac trometh. 30mg/ml inj. IM ONE (21:40)
== END 2020-05-21 21:49 | disposition home or self-care (01) ==
LOC: ER 19:32
DX: S06.0X0A Concussion without loss of consciousness, initial encounter (principal); E78.00 Pure hypercholesterolemia, unspecified; I10 Essential (primary) hypertension; F12.90 Cannabis use, unspecified, uncomplicated; Z72.89 Other problems related to lifestyle; Z90.49 Acquired absence of other specified parts of digestive tract; Z98.52 Vasectomy status; Z88.7 Allergy status to serum and vaccine; Z79.82 Long term (current) use of aspirin; Z79.899 Other long term (current) drug therapy; W22.8XXA Striking against or struck by other objects, initial encounter; Y93.89 Activity, other specified; Y92.89 Other specified places as the place of occurrence of the external cause; Y99.8 Other external cause status
CPT/HCPCS: 99282

== ENCOUNTER 2020-11-06 18:17 | Emergency (ER) | payer MEDICAID ==
[~2020-11-06] VITALS: Ht 170.2 cm; Wt 90.0 kg
[2020-11-06 19:10] VITALS: BP 148/99
[2020-11-06] MEDS ORDERED: acetaminophen 325mg tablet PO ONE (22:40)
[2020-11-06] MEDS ORDERED: AMOX500C2 PO (23:52)
[2020-11-06] MEDS ORDERED: PRED20TA PO (23:52)
== END 2020-11-06 23:58 | disposition home or self-care (01) ==
LOC: ER 18:18
DX: H92.03 Otalgia, bilateral (principal); I10 Essential (primary) hypertension; E78.00 Pure hypercholesterolemia, unspecified; F12.90 Cannabis use, unspecified, uncomplicated; Z90.89 Acquired absence of other organs; Z98.890 Other specified postprocedural states; Z72.89 Other problems related to lifestyle; Z88.8 Allergy status to other drugs, medicaments and biological substances; Z79.82 Long term (current) use of aspirin; Z79.2 Long term (current) use of antibiotics; Z79.899 Other long term (current) drug therapy
CPT/HCPCS: 99283

== ENCOUNTER 2020-11-16 18:40 | Emergency (ER) | payer MEDICAID ==
[~2020-11-16] VITALS: Ht 170.2 cm; Wt 80.7 kg
[~2020-11-16 18:40] MED LIST changes: +AMOX500C2 PO
[2020-11-16] MEDS ORDERED: ondansetron/PF 4mg/2ml inj IV ONE (19:20)
[2020-11-16] MEDS ORDERED: fentaNYL/PF 50MCG/1 ML 2ML syringe IV ONE (19:20)
[2020-11-16] MEDS ORDERED: ketorolac tromethamine 15mg/ml inj. IV ONE (20:50)
[2020-11-16] MEDS ORDERED: HYDROcodone/acetaminophen 5mg/325mg tablet PO ONE (20:50)
[2020-11-16] MEDS ORDERED: HYDR-3965 PO (21:03)
[2020-11-16 21:25] VITALS: BP 151/98
== END 2020-11-16 21:20 | disposition home or self-care (01) ==
LOC: ER 18:41
DX: S06.0X9A Concussion with loss of consciousness of unspecified duration, initial encounter (principal); M25.512 Pain in left shoulder; M25.511 Pain in right shoulder; E78.00 Pure hypercholesterolemia, unspecified; I10 Essential (primary) hypertension; F12.90 Cannabis use, unspecified, uncomplicated; Z90.89 Acquired absence of other organs; Z98.890 Other specified postprocedural states; Z72.89 Other problems related to lifestyle; Z88.7 Allergy status to serum and vaccine; Z79.82 Long term (current) use of aspirin; Z79.899 Other long term (current) drug therapy; W01.0XXA Fall on same level from slipping, tripping and stumbling without subsequent striking against object, initial encounter; Y93.89 Activity, other specified; Y92.89 Other specified places as the place of occurrence of the external cause; Y99.8 Other external cause status
CPT/HCPCS: 70450; 71045; 72125; 73030; 96374; 96375; 99285; J1885; J2405; J3010

== ENCOUNTER 2020-12-21 12:22 | Emergency (ER) | payer MEDICAID ==
[~2020-12-21] VITALS: Ht 170.2 cm; Wt 90.0 kg
[~2020-12-21 12:22] MED LIST changes: -AMOX500C2 PO
[2020-12-21] MEDS ORDERED: NAPR-56 PO (14:10)
[2020-12-21] MEDS ORDERED: CYCL-1 PO (14:10)
[2020-12-21] MEDS ORDERED: METH4TAB3 PO (14:10)
[2020-12-21] MEDS ORDERED: ketorolac trometh inj. 60 MG/2 ML VIAL IM ONE (14:10)
[2020-12-21 14:23] VITALS: BP 150/101
== END 2020-12-21 14:24 | disposition home or self-care (01) ==
LOC: ER 12:23
DX: M54.5 Low back pain (principal); M54.17 Radiculopathy, lumbosacral region; R10.31 Right lower quadrant pain; E78.00 Pure hypercholesterolemia, unspecified; I10 Essential (primary) hypertension; F12.90 Cannabis use, unspecified, uncomplicated; Z90.89 Acquired absence of other organs; Z98.890 Other specified postprocedural states; Z72.89 Other problems related to lifestyle; Z88.8 Allergy status to other drugs, medicaments and biological substances; Z79.82 Long term (current) use of aspirin; Z79.899 Other long term (current) drug therapy
CPT/HCPCS: 96372; 99284; J1885

== ENCOUNTER 2021-10-14 20:13 | Emergency (ER) | payer MEDICAID ==
[~2021-10-14] VITALS: Ht 170.2 cm; Wt 83.9 kg
[~2021-10-14 20:13] MED LIST changes: +CYCL-1 PO; +METH4TAB3 PO; +OMEP20TA43 PO; -OMEP20TA5 PO
[2021-10-15] MEDS ORDERED: diphenhydrAMINE 50 mg/ml inj IM ONE (00:20)
[2021-10-15] MEDS ORDERED: ketorolac trometh inj. 60 MG/2 ML VIAL IM ONE (00:20)
[2021-10-15] MEDS ORDERED: haloperidol lactate 5mg/ml inj IM ONE (00:20)
[2021-10-15 00:59] VITALS: BP 124/89
== END 2021-10-15 01:32 | disposition home or self-care (01) ==
LOC: ER 20:14
DX: G43.909 Migraine, unspecified, not intractable, without status migrainosus (principal); I11.9 Hypertensive heart disease without heart failure; E78.00 Pure hypercholesterolemia, unspecified; F12.10 Cannabis abuse, uncomplicated; Z88.8 Allergy status to other drugs, medicaments and biological substances; Z90.49 Acquired absence of other specified parts of digestive tract
CPT/HCPCS: 96372; 99284; J1200; J1630; J1885

== ENCOUNTER 2022-01-09 23:28 | Emergency (ER) | payer MEDICAID ==
[~2022-01-09] VITALS: Ht 170.2 cm; Wt 79.1 kg
--- NOTE | 2022-01-10 03:28 | NUR ---
PT ROOMED TO BED 13. PT SEEMED TO BE LOSING HIS BALANCE HE WALKED TO HIS ROOM. DR LINARES IS AWARE OF PT AND BALANCE ISSUES AMBULATING TO HIS ROOM.
[2022-01-10] MEDS ORDERED: proCHLORperazine 10 MG/2 ml inj IV ONE (03:30)
[2022-01-10 04:33] LABS: BASOPHILS # (AUTO) 0.1 X10'3 (0-0.2); BASOPHILS % (AUTO) 0.4 % (0-1); EOSINOPHILS # (AUTO) 0.1 X10'3 (0-0.9); EOSINOPHILS % (AUTO) 0.8 % (0-6); HEMATOCRIT 44.7 % (42.0-52.0); HEMOGLOBIN 15.1 g/dl (14.0-17.9); LYMPHOCYTES # (AUTO) 2.3 X10'3 (1.1-4.8); LYMPHOCYTES % (AUTO) 20.1 % (21-51); MEAN CORPUSCULAR HEMOGLOBIN 31.4 PG (27.0-31.0); MEAN CORPUSCULAR HGB CONC 33.7 g/dL (33.0-36.5); MEAN PLATELET VOLUME 7.5 FL (7.4-10.4); MONOCYTES # (AUTO) 0.9 X10'3 (0-0.9); MONOCYTES % (AUTO) 7.9 % (2-12); NEUTROPHILS # (AUTO) 8.1 X10'3 (1.8-7.7); NEUTROPHILS % (AUTO) 70.8 % (42-75); PLATELET COUNT 266 X10'3 (140-440); RED BLOOD COUNT 4.81 X10'6 (4.70-6.10); RED CELL DISTRIBUTION WIDTH 13.8 % (11.5-14.5); WHITE BLOOD COUNT 11.4 X10'3 (4.5-11.0)
[2022-01-10 04:43] LABS: ALANINE AMINOTRANSFERASE 25 U/L (12-78); ALBUMIN 3.9 G/DL (3.4-5.0); ALBUMIN/GLOBULIN RATIO 1.3 (1.1-1.5); ALKALINE PHOSPHATASE 89 IU/L (46-116); ANION GAP 15 (8-16); ASPARTATE AMINO TRANSFERASE 22 U/L (10-37); BILIRUBIN,TOTAL 0.7 MG/DL (0.1-1.0); BLOOD UREA NITROGEN 17 MG/DL (7-18); BUN/CREATININE RATIO 18.3 (5.4-32.0); CALCIUM 8.8 MG/DL (8.5-10.1); CHLORIDE 99 MMOL/L (99-107); CREATINE KINASE 311 U/L (39-308); CREATININE 0.93 MG/DL (0.60-1.10); GLUCOSE 73 MG/DL (70-104); POTASSIUM 3.8 MMOL/L (3.5-5.1); SODIUM 138 MMOL/L (135-145); TOTAL CARBON DIOXIDE 24.5 MMOL/L (24-32); eGFR 85 ML/MIN
--- NOTE | 2022-01-10 04:45 | NUR ---
Patient given urinal, states he doesnt feel like he can pee d/t not drinking enough water.
[2022-01-10] MEDS ORDERED: acetaminophen 325mg tablet PO ONE (05:00)
[2022-01-10] MEDS ORDERED: ketorolac trometh. 30mg/ml inj. IV ONE (05:00)
[2022-01-10] MEDS ORDERED: normal saline 1000ml 1,000 ML IV ONE (05:00)
[2022-01-10] MEDS ORDERED: metoclopramide 5 mg/ml inj IV ONE (05:00)
[2022-01-10 05:50] VITALS: BP 137/68
== END 2022-01-10 05:52 | disposition home or self-care (01) ==
LOC: ER 23:29
DX: G43.909 Migraine, unspecified, not intractable, without status migrainosus (principal); I25.10 Atherosclerotic heart disease of native coronary artery without angina pectoris; E78.00 Pure hypercholesterolemia, unspecified; I10 Essential (primary) hypertension; F17.200 Nicotine dependence, unspecified, uncomplicated; Z90.89 Acquired absence of other organs; Z98.890 Other specified postprocedural states; Z72.89 Other problems related to lifestyle; Z79.82 Long term (current) use of aspirin; Z79.899 Other long term (current) drug therapy
CPT/HCPCS: 36415; 70450; 80053; 82550; 85025; 96361; 96374; 96375; 99284; J0780; J1885; J2765; J7030

== ENCOUNTER 2022-01-21 21:47 | Emergency (ER) | payer MEDICAID ==
[~2022-01-21] VITALS: Ht 172.7 cm; Wt 80.2 kg
[2022-01-21 21:56] VITALS: BP 137/86
== END 2022-01-21 23:27 | disposition left against medical advice (07) ==
LOC: ER 21:48
DX: M79.673 Pain in unspecified foot (principal); Z53.21 Procedure and treatment not carried out due to patient leaving prior to being seen by health care provider

== ENCOUNTER 2022-01-22 00:12 | Emergency (ER) | payer MEDICAID ==
[~2022-01-22] VITALS: Ht 172.7 cm; Wt 80.2 kg
[2022-01-22 00:27] VITALS: BP 153/93
[2022-01-22] MEDS ORDERED: acetaminophen 325mg tablet PO ONE (01:00)
[2022-01-22] MEDS ORDERED: LIDOCAINE 5% OINTMENT 35GM TP ONE (01:00)
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
== END 2022-01-22 01:48 | disposition home or self-care (01) ==
LOC: ER 00:13
DX: M79.671 Pain in right foot (principal); M79.672 Pain in left foot; G43.909 Migraine, unspecified, not intractable, without status migrainosus; E78.00 Pure hypercholesterolemia, unspecified; I10 Essential (primary) hypertension; F12.90 Cannabis use, unspecified, uncomplicated; Z88.7 Allergy status to serum and vaccine; Z98.890 Other specified postprocedural states
CPT/HCPCS: 99283

== ENCOUNTER 2022-01-30 23:43 | Emergency (ER) | payer MEDICAID ==
[~2022-01-30] VITALS: Ht 170.2 cm; Wt 90.0 kg
[2022-01-31] MEDS ORDERED: HYDROcodone/acetaminophen 10/325mg tab PO ONE (01:35)
[2022-01-31] MEDS ORDERED: ondansetron 4mg rapidly disintigrating tab PO ONE (01:35)
[2022-01-31 03:08] VITALS: BP 146/105
== END 2022-01-31 03:10 | disposition home or self-care (01) ==
LOC: ER 23:44
DX: S09.90XA Unspecified injury of head, initial encounter (principal); R11.2 Nausea with vomiting, unspecified; G43.909 Migraine, unspecified, not intractable, without status migrainosus; I25.10 Atherosclerotic heart disease of native coronary artery without angina pectoris; E78.00 Pure hypercholesterolemia, unspecified; I10 Essential (primary) hypertension; F12.90 Cannabis use, unspecified, uncomplicated; Z90.89 Acquired absence of other organs; Z98.890 Other specified postprocedural states; Z72.89 Other problems related to lifestyle; Z88.6 Allergy status to analgesic agent; Z79.82 Long term (current) use of aspirin; Z79.899 Other long term (current) drug therapy; W19.XXXA Unspecified fall, initial encounter; Y93.89 Activity, other specified; Y92.89 Other specified places as the place of occurrence of the external cause; Y99.8 Other external cause status
CPT/HCPCS: 70450; 99284; A6449